=== PATIENT | male | born 1980 | race Caucasian/White ===

== ENCOUNTER 2017-08-31 10:33 | Emergency (ER) | payer BC, MEDICAID ==
[~2017-08-31] VITALS: Ht 172.7 cm; Wt 79.0 kg
[2017-08-31] MEDS ORDERED: LIDOCAINE HCL 1% 20ML VIAL (Pyxis) INJ MC ONE (16:15)
[2017-08-31] MEDS ORDERED: BACITRACIN ZINC OINT UDPKT TOP ONE (16:15)
[2017-08-31] MEDS ORDERED: LIDOCAINE HCL/PF 1% 10 MG/ML 5ML VIAL ONE (16:32)
[2017-08-31 17:27] VITALS: BP 133/72
== END 2017-08-31 17:29 | disposition home or self-care (01) ==
LOC: ER 11:49
DX: S61.412A Laceration without foreign body of left hand, initial encounter (principal); S90.02XA Contusion of left ankle, initial encounter; V29.88XA Motorcycle rider (driver) (passenger) injured in other specified transport accidents, initial encounter; Y93.89 Activity, other specified; Y92.89 Other specified places as the place of occurrence of the external cause; Y99.8 Other external cause status
CPT/HCPCS: 12002; 73130; 73610; 73630; 99284; J3490; Z7610